=== PATIENT | female | born 1945 | race Two or more races ===

== ENCOUNTER 2022-03-07 16:51 | Inpatient (IN) | payer OTHER ==
[2022-03-07] MEDS ORDERED: TENORMIN25 MG (17:28)
[2022-03-07] MEDS ORDERED: COZAAR50 MG (17:28)
[2022-03-07] MEDS ORDERED: LANTUS (17:32)
[2022-03-08] MEDS ORDERED: ATORVASTATIN CA40 MG (11:51)
[2022-03-08] MEDS ORDERED: DICLOFENAC POTA50 MG (11:51)
[2022-03-08] MEDS ORDERED: JARDIANCE25 MG (11:51)
[2022-03-08] MEDS ORDERED: GLIMEPIRIDE1 M1 (11:51)
[2022-03-08] MEDS ORDERED: LANTUS SOL100 UNIT/1 (11:52)
== END 2022-05-04 13:16 | disposition expired | DRG 592 ==
LOC: ER 16:51 → MEDJ 20:55 → SEC-K 20:55 → SURG 03-10 22:07
PROVIDERS: ADMIT Internal Medicine; ATTEND Internal Medicine
PROC: 02HV33Z Insertion of Infusion Device into Superior Vena Cava, Percutaneous Approach (ICD-10-PCS; 2022-03-08)
PROC: CW1N1ZZ Planar Nuclear Medicine Imaging of Whole Body using Technetium 99m (Tc-99m) (ICD-10-PCS; 2022-03-13)
PROC: CW2 Nuclear Medicine, Anatomical Regions, Tomographic (Tomo) Nuclear Medicine Imaging (ICD-10-PCS; 2022-03-17)
PROC: BR39ZZZ Magnetic Resonance Imaging (MRI) of Lumbar Spine (ICD-10-PCS; 2022-03-20)
PROC: BR3 Imaging, Axial Skeleton, Except Skull and Facial Bones, Magnetic Resonance Imaging (MRI) (ICD-10-PCS; 2022-03-20)
PROC: 5A09457 Assistance with Respiratory Ventilation, 24-96 Consecutive Hours, Continuous Positive Airway Pressure (ICD-10-PCS; 2022-03-22)
PROC: BW2510Z Computerized Tomography (CT Scan) of Chest, Abdomen and Pelvis using Low Osmolar Contrast, Unenhanced and Enhanced (ICD-10-PCS; 2022-03-22)
PROC: 5A0935A Assistance with Respiratory Ventilation, Less than 24 Consecutive Hours, High Flow/Velocity Cannula (ICD-10-PCS; 2022-03-25)
PROC: B24BYZZ Ultrasonography of Heart with Aorta using Other Contrast (ICD-10-PCS; 2022-03-27)
PROC: B54DZZZ Ultrasonography of Bilateral Lower Extremity Veins (ICD-10-PCS; 2022-03-27)
PROC: BW24ZZZ Computerized Tomography (CT Scan) of Chest and Abdomen (ICD-10-PCS; 2022-03-27)
PROC: 30243N1 Transfusion of Nonautologous Red Blood Cells into Central Vein, Percutaneous Approach (ICD-10-PCS; principal; 2022-03-28)
PROC: 0W9B3ZZ Drainage of Left Pleural Cavity, Percutaneous Approach (ICD-10-PCS; 2022-03-31)
PROC: BW24ZZZ Computerized Tomography (CT Scan) of Chest and Abdomen (ICD-10-PCS; 2022-04-04)
PROC: 0W993ZZ Drainage of Right Pleural Cavity, Percutaneous Approach (ICD-10-PCS; 2022-04-06)
PROC: 0W9B3ZZ Drainage of Left Pleural Cavity, Percutaneous Approach (ICD-10-PCS; 2022-04-10)
DX: L89.154 Pressure ulcer of sacral region, stage 4 (principal); I26.99 Other pulmonary embolism without acute cor pulmonale; J96.21 Acute and chronic respiratory failure with hypoxia; J96.22 Acute and chronic respiratory failure with hypercapnia; N39.0 Urinary tract infection, site not specified; Z16.24 Resistance to multiple antibiotics; Z16.12 Extended spectrum beta lactamase (ESBL) resistance; I82.591 Chronic embolism and thrombosis of other specified deep vein of right lower extremity; J90 Pleural effusion, not elsewhere classified; A04.72 Enterocolitis due to Clostridium difficile, not specified as recurrent; B96.1 Klebsiella pneumoniae [K. pneumoniae] as the cause of diseases classified elsewhere; B96.6 Bacteroides fragilis [B. fragilis] as the cause of diseases classified elsewhere; E11.628 Type 2 diabetes mellitus with other skin complications; L08.89 Other specified local infections of the skin and subcutaneous tissue; L89.124 Pressure ulcer of left upper back, stage 4; B96.5 Pseudomonas (aeruginosa) (mallei) (pseudomallei) as the cause of diseases classified elsewhere; I11.9 Hypertensive heart disease without heart failure; I25.10 Atherosclerotic heart disease of native coronary artery without angina pectoris; E66.09 Other obesity due to excess calories; Z68.35 Body mass index [BMI] 35.0-35.9, adult; D50.0 Iron deficiency anemia secondary to blood loss (chronic); D63.8 Anemia in other chronic diseases classified elsewhere; Z66 Do not resuscitate
CPT/HCPCS: 72158